=== PATIENT | female | born 1960 | race Hispanic/Latino ===

== ENCOUNTER 2018-04-28 10:03 | Outpatient (CLI) | payer BC | END 2018-04-28 10:04 | disposition home or self-care (01) | LOC: BICMAMMO 10:03 | PROVIDERS: ATTEND Obstetrics & Gynecology | DX: Z12.31 Encounter for screening mammogram for malignant neoplasm of breast (principal) | CPT/HCPCS: 77063; 77067 ==

== ENCOUNTER 2020-05-05 07:46 | Outpatient (CLI) | payer BC, OTHER ==
[2020-05-05 11:33] LABS: #Basophils 0.1 thou/uL (0.0-0.2); #Eosinphils 0.1 thou/uL (0.0-0.7); #Monocytes 0.5 thou/uL (0.11-0.59); #Neutrophils 7.7 thou/uL (1.40-6.50); %Basophils 0.5 % (0.0-1.0); %Eosinophils 1.4 % (0.0-10.0); %Lymphocytes 19.5 % (21.0-51.0); %Monocytes 5.1 % (0.0-10.0); %Neutrophils 73.6 % (42.0-75.0); Hemoglobin 13.6 g/dL (12.0-16.0); Mean Corpuscular HGB CONC 32.7 g/dL (32.0-36.0); Mean Corpuscular Hemoglobin 26.2 pg (27.0-31.0); Mean Corpuscular Volume 80.3 fL (78.0-98.0); Mean Platelet Volume 9.1 fL (7.4-10.4); Platelet Count 257 thou/uL (130-400); RBC Distribution Width 13.4 % (11.5-14.5); Red Blood Cell (RBC) Count 5.19 mill/uL (4.20-5.40); White Blood Cell (WBC) Count 10.5 thou/uL (4.8-10.8)
[2020-05-05 11:52] LABS: Bilirubin Negative (Negative); Blood, Urine Negative (Negative); Clarity Clear (Clear); Glucose, Urine (Dipstick) Normal (Negative); Ketone, Urine Negative (Negative); Leukocyte Negative Leu/uL (Negative); Nitrite Negative (Negative); Protein, Urine (Dipstick) Negative (Neg-Trace); RBC/HPF 0-3 HPF (0-3); Specific Gravity, Urine 1.021 (1.002-1.036); Squamous Epithelial 0-3 HPF (0-3); Urobilinogen Normal mg/dL (Less than 2); WBC/HPF 0-3 HPF (0-3)
[2020-05-05 11:59] LABS: Anion Gap 16 mmol/L (10-20); BUN (Urea Nitrogen) 13 mg/dL (9.8-20.1); Bacteria/HPF 1+ HPF (None Seen); Calc. Creatinine Clearance 0 mL/min (70-130); Calcium 9.1 mg/dL (7.8-10.44); Carbon Dioxide 19 mmol/L (23-31); Chloride 106 mmol/L (98-107); Estimated GFR-MDRD 68; Glucose 153 mg/dL (80-115); Potassium 4.1 mmol/L (3.5-5.1); Sodium 137 mmol/L (136-145)
[2020-05-05 12:42] LABS: INR-International Normal Ratio 0.9; Prothrombin Time 12.3 sec (12.0-14.7)
[2020-05-05 17:07] LABS: SARS-CoV-2 MS2 Positive; SARS-CoV-2 N Gene Negative; SARS-CoV-2 S Gene Negative; SARS-CoV-2 by NAA Not Detected (NotDetected); SARS-CoV-2 orf1ab Negative
--- NOTE | 2020-05-08 12:02 | EKG ---
Test Reason : PREOP Blood Pressure : / mmHG Vent. Rate : 070 BPM Atrial Rate : 070 BPM P-R Int : 194 ms QRS Dur : 092 ms QT Int : 402 ms P-R-T Axes : 070 097 068 degrees QTc Int : 434 ms Normal sinus rhythm Rightward axis Borderline ECG Confirmed by SHIVA HASKINS (2) on 05/08/2020 12:01:36 PM Referred By: Augustus RUIZ Confirmed By:SHIVA HASKINS
== END 2020-05-05 07:47 | disposition home or self-care (01) ==
LOC: LABBT 07:46
PROVIDERS: ATTEND Orthopaedic Surgery
DX: Z01.818 Encounter for other preprocedural examination (principal); M17.12 Unilateral primary osteoarthritis, left knee; Z20.828 Contact with and (suspected) exposure to other viral communicable diseases
CPT/HCPCS: 80048; 81001; 85025; 85610; 87635; 93005; 93010; U0003

== ENCOUNTER 2020-05-05 09:30 | Inpatient (IN) | payer BC ==
[2020-05-10] MEDS ORDERED: Fentanyl 100 MCG/2 ML VIAL ONE ×2 (07:50→09:00)
[2020-05-10] MEDS ORDERED: Midazolam HCl 2 mg/2 ml Vial ONE (07:50)
[2020-05-10] MEDS ORDERED: Vancomycin 1 GM/200 ML BAG ONE (07:54)
[2020-05-10] MEDS ORDERED: Tranexamic Acid 1,000 MG/10 ML VIAL ONE (07:54)
[2020-05-10] MEDS ORDERED: Sodium Chloride 0.9% 100 ML ONE (07:54)
[2020-05-10] MEDS ORDERED: HYDROcodone/Acetaminophen 10/325 mg Tablet PO PRN ×2 (08:45)
[2020-05-10] MEDS ORDERED: Fentanyl 100 MCG/2 ML VIAL SLOW IVP PRN (08:45)
[2020-05-10] MEDS ORDERED: Ropivacaine HCl/PF 250 ML in Premix Bag 1 BAG NERVE BLCK SCH (08:45)
[2020-05-10] MEDS ORDERED: traMADol HCl 50 MG TAB PO PRN ×2 (08:45)
[2020-05-10] MEDS ORDERED: Ondansetron PF 4 MG/2 ML Vial IVP PRN ×2 (08:45→08:56)
[2020-05-10] MEDS ORDERED: Zolpidem Tartrate 5 MG TAB PO PRN ×2 (08:45→08:56)
[2020-05-10] MEDS ORDERED: Promethazine HCl 25 MG/ML VIAL IM PRN ×3 (08:45→10:44)
[2020-05-10] MEDS ORDERED: diphenhydrAMINE 25 MG CAP PO PRN (08:56)
[2020-05-10] MEDS ORDERED: Acetaminophen 325 MG TAB PO PRN (08:56)
[2020-05-10] MEDS ORDERED: Ondansetron HCl/PF 4 MG/2 ML Vial IVP PRN (10:44)
[2020-05-10] MEDS ORDERED: Promethazine HCl 25 MG/ML VIAL SLOW IVP PRN (10:44)
--- NOTE | 2020-05-10 10:55 | RAD ---
EXAM: 2 views of the left knee HISTORY: Knee arthroplasty COMPARISON: None FINDINGS: No knee effusion is seen. The patient is status post knee arthroplasty without perihardware lucency or fracture. Air in the soft tissues is from recent surgery. IMPRESSION: Status post knee arthroplasty without evidence of complication.
[2020-05-10 11:51] VITALS: BMI 35.4
[2020-05-10] MEDS ORDERED: Ropivacaine 0.2% HCl/PF (40 MG/20 ML VIAL) ONE (12:16)
[2020-05-10] MEDS ORDERED: PROPOFOL 200 MG/20 ML VIAL ONE (12:16)
[2020-05-10] MEDS ORDERED: Dexamethasone 20 MG/5 ML VIAL ONE (12:16)
[2020-05-10] MEDS ORDERED: Lidocaine 1% PF 5 ML VIAL ONE (12:16)
[2020-05-10] MEDS ORDERED: PHENYLEPHRINE-NS 100 MCG/ML 10 ML SYRINGE ONE (12:16)
[2020-05-10] MEDS ORDERED: Bupivacaine HCl 0.5%/Epinephrine 1:200,000/PF 30 ml Vial ONE (12:16)
[2020-05-10] MEDS: Ketorolac Tromethamine 30 MG/ML VIAL IVP SCH ×3 (15:00→23:38)
[2020-05-10] MEDS: Sodium Chloride 0.9% 1,000 ML IV SCH ×2 (15:00→22:30)
[2020-05-10] MEDS: Aspirin 81 mg Enteric Coated Tablet PO SCH ×2 (15:00→20:43)
[2020-05-10] MEDS: CEFAZOLIN 2 GM in Premix Bag 1 BAG IVPB SCH ×2 (17:03→23:39)
[2020-05-11] MEDS: Sodium Chloride 0.9% 1,000 ML IV SCH ×2 (04:04→14:22)
[2020-05-11] MEDS: Ketorolac Tromethamine 30 MG/ML VIAL IVP SCH ×4 (05:16→23:45)
[2020-05-11 05:40] LABS: Hemoglobin 12.2 g/dL (12.0-16.0); Mean Corpuscular HGB CONC 33.5 g/dL (32.0-36.0); Mean Corpuscular Hemoglobin 26.8 pg (27.0-31.0); Mean Corpuscular Volume 80.1 fL (78.0-98.0); Mean Platelet Volume 8.8 fL (7.4-10.4); Platelet Count 244 thou/uL (130-400); Red Blood Cell (RBC) Count 4.56 mill/uL (4.20-5.40)
[2020-05-11] MEDS: Senokot S 8.6-50 MG TAB PO SCH ×2 (08:57→21:50)
[2020-05-11] MEDS: Ferrous Gluconate 324 MG TAB PO SCH ×2 (08:57→21:50)
[2020-05-11] MEDS: Multivitamin W/ Minerals 1 TAB PO SCH (08:57)
[2020-05-11] MEDS: Aspirin 81 mg Enteric Coated Tablet PO SCH ×2 (08:57→21:50)
[2020-05-11] MEDS ORDERED: FLU VACC QS2020-21(6MOS UP)/PF 60 MCG/0.5 ML SYRINGE IM ONE (09:00)
--- NOTE | 2020-05-11 12:47 | OP ---
DATE OF PROCEDURE: 05/10/2020 PROCEDURE PERFORMED: Left total knee arthroplasty using [employer] Triathlon 2 tibia, 2 femur, 9 mm CS X3 polyethylene and S27 patella. 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 The research lab assistant/co-surgeon also provided bleeding control, tissue closure, and suturing in conjunction with the primary surgeon. BLOOD LOSS: Minimal. SPECIMEN: None. DRAINS: None. COMPLICATION: None. PROCEDURE IN DETAIL: After informed consent was obtained in the preoperative holding area, the patient was taken to the operative suite where general anesthesia was induced. Once adequate level of general anesthesia was obtained, the patient was positioned and a well-padded tourniquet was placed around the left proximal thigh. The left lower extremity was then prepped and draped in the usual sterile fashion. Prior to exsanguination, a time-out was called and all members of the surgical team agreed upon site, surgeon, and patient. The extremity was then exsanguinated and the tourniquet was raised. A midline longitudinal incision was then made directly over the patella extending 2 fingerbreadths above the superior pole of the patella and 2 fingerbreadths inferior to the inferior patellar pole of the patella. Deeper subcutaneous layers were dissected sharply and local bleeding was controlled with Bovie electrocautery. A quad tendon longitudinal split was then made sharply and a median parapatellar arthrotomy was carried out both sharp and with Bovie electrocautery, carried down to 1 fingerbreadth medial to the tibial tubercle. The knee was then placed into flexion and the patella was everted nicely, and a copious fat pad ectomy was performed allowing for greater exposure of the tibia. The computer-assisted distal femoral fiducial was then placed and pinned firmly, and the distal femoral cutting guide was pinned firmly into place. The oscillating saw was then used to remove the appropriate amount of bone. The 4-in-1 cutting block was then placed on the distal femur and the oscillating saw was used to remove the appropriate amount of bone off the anterior, posterior, and chamfer cuts. After completion of bone cuts, the anterior cruciate ligament was resected sharply and the posterior cruciate ligament retractor was placed and the tibia was subluxed for better exposure. Partial meniscectomies were carried out, and the tibial computer-assisted fiducial was pinned, and the cutting guide was placed. Oscillating saw was then used to remove the bone, with Hohmann retractors used to take care and protect the collateral ligaments. After the tibial resection was performed, a laminar cocoa press operator was placed in between the freshened bone cuts. The knee placed at 90 degrees and further bilateral meniscectomies were carried out, and the curved osteotome and curettage were used to remove any excess bone spurs in the posterior compartment. The trial femoral component, tibial baseplate were placed with the appropriate polyethylene trial insert with an appropriate polyethylene spacer and patellar button. The knee was taken through full range of motion with flexion and extension from 0 to 90 degrees and patellar broach squarely in the trochlea without any squinting or subluxation noted. The knee was also stable to varus and valgus stressing at 0, 15, 45, and 90 degrees of flexion. The drawer was negative. All trial components were then removed and the keel punch was used to provide the appropriate defect in the tibia with a mallet. The freshened bone cuts were copiously irrigated with pulsatile lavage of about 1.5 L to remove all excess debris. The freshened bone cuts were then dried with suction and lap sponge. The knee was placed in flexion and retractors were placed to provide access to all bone cuts. Tobramycin-impregnated methyl methacrylate cement was then placed on the freshened bone cuts and implants which were malleted firmly into place. Curettage and [place] elevators were used to remove any excess bone cement. The knee was placed into full extension and the patellar button was placed under compression, and the cement was allowed to cure. Once completed, the components were again taken through full range of motion and copious irrigation of the knee was carried out with another liter of normal saline. All components were inspected fully with full range of motion and varus and valgus stressing. There was no laxity noted and full extension was observed clinically. Primary closure was accomplished with #2 interrupted Vicryl stitch of the arthrotomy defect. This was oversewn with a #2 running Quill barbed stitch. The gravitational platelet system was then injected into the arthrotomy prior to closure. The subcutaneous layer was then closed with a running 0 barbed Monocryl stitch and skin closure accomplished with a running subcuticular 3-0 Monocryl barbed Quill stitch and augmented with cement on the skin. Tourniquet was lowered. Good spontaneous return of distal pulses was noted clinically and a sterile dressing was applied to the incision. The procedure was terminated without any complications. The patient was awakened in the operative suite and the was removed, and the patient was taken to the recovery room in stable condition. Job ID: [id number]
[2020-05-12] MEDS: Sodium Chloride 0.9% 1,000 ML IV SCH ×2 (02:00→10:27)
[2020-05-12 05:14] LABS: Hemoglobin 11.8 g/dL (12.0-16.0); Mean Corpuscular HGB CONC 33.4 g/dL (32.0-36.0); Mean Corpuscular Hemoglobin 26.8 pg (27.0-31.0); Mean Corpuscular Volume 80.2 fL (78.0-98.0); Mean Platelet Volume 8.6 fL (7.4-10.4); Platelet Count 236 thou/uL (130-400); Red Blood Cell (RBC) Count 4.41 mill/uL (4.20-5.40); White Blood Cell (WBC) Count 14.3 thou/uL (4.8-10.8)
[2020-05-12] MEDS: Ketorolac Tromethamine 30 MG/ML VIAL IVP SCH (05:45)
[2020-05-12] MEDS: Ferrous Gluconate 324 MG TAB PO SCH (08:26)
[2020-05-12] MEDS: Aspirin 81 mg Enteric Coated Tablet PO SCH (08:26)
[2020-05-12] MEDS: Multivitamin W/ Minerals 1 TAB PO SCH (08:26)
[2020-05-12] MEDS: Senokot S 8.6-50 MG TAB PO SCH (08:26)
[2020-05-12 16:46] VITALS: BP 103/67; TEMP 98.2
== END 2020-05-12 16:55 | disposition home or self-care (01) | DRG 470 ==
LOC: SURG A 05-10 06:24 → SJJU 05-10 11:46
PROVIDERS: ADMIT Orthopaedic Surgery; ATTEND Orthopaedic Surgery
PROC: 0SRD0J9 Replacement of Left Knee Joint with Synthetic Substitute, Cemented, Open Approach (ICD-10-PCS; principal; 2020-05-10)
PROC: 3E02340 Introduction of Influenza Vaccine into Muscle, Percutaneous Approach (ICD-10-PCS; 2020-05-11)
DX: M17.12 Unilateral primary osteoarthritis, left knee (principal); Z23 Encounter for immunization
CPT/HCPCS: 36415; 85027; 90471; 90662; C1713; C1776; G0008; J0690; J1100; J1885; J2250; J2704; J2795; J3010; J3370; J3490

== ENCOUNTER 2021-04-24 14:23 | Outpatient (CLI) | payer BC | END 2021-04-24 14:24 | disposition home or self-care (01) | LOC: BICMAMMO 14:23 | PROVIDERS: ATTEND Obstetrics & Gynecology | DX: Z12.31 Encounter for screening mammogram for malignant neoplasm of breast (principal) | CPT/HCPCS: 77063; 77067 ==

== ENCOUNTER 2022-05-28 08:54 | Outpatient (CLI) | payer BC | END 2022-05-28 08:55 | disposition home or self-care (01) | LOC: BICMAMMO 08:54 | PROVIDERS: ATTEND Obstetrics & Gynecology | DX: Z12.31 Encounter for screening mammogram for malignant neoplasm of breast (principal) | CPT/HCPCS: 77063; 77067 ==

== ENCOUNTER 2023-06-20 11:26 | Outpatient (CLI) | payer BC | END 2023-06-20 11:27 | disposition home or self-care (01) | LOC: BICMAMMO 11:26 | PROVIDERS: ATTEND Obstetrics & Gynecology | DX: Z12.31 Encounter for screening mammogram for malignant neoplasm of breast (principal) | CPT/HCPCS: 77063; 77067 ==

== ENCOUNTER 2024-04-13 10:29 | Outpatient (CLI) | payer BC | END 2024-04-13 10:30 | disposition home or self-care (01) | LOC: BICCT 10:29 | PROVIDERS: ATTEND Orthopaedic Surgery | DX: M17.11 Unilateral primary osteoarthritis, right knee (principal) ==

== ENCOUNTER 2024-04-22 08:58 | Outpatient (CLI) | payer BC ==
[2024-04-22 10:24] LABS: #Basophils 0.05 10x3/uL (0.0-0.2); %Basophils 0.6 % (0.0-1.0); %Eosinophils 1.8 % (0.0-10.0); %Lymphocytes 25.8 % (21.0-51.0); %Monocytes 6.7 % (0.0-10.0); %Neutrophils 64.9 % (42.0-75.0); Hematocrit 44.4 % (36.0-47.0); Hemoglobin 14.1 g/dL (12.0-16.0); Mean Corpuscular HGB CONC 31.8 g/dL (32.0-36.0); Mean Corpuscular Volume 78.7 fL (78.0-98.0); Platelet Count 259 10x3/uL (130-400); RBC Distribution Width 14.5 % (11.5-14.5); Red Blood Cell (RBC) Count 5.64 mill/uL (4.20-5.40)
[2024-04-22 10:37] LABS: Prothrombin Time 12.7 sec (12.0-14.7)
[2024-04-22 10:41] LABS: Anion Gap 12 mmol/L (10-20); BUN (Urea Nitrogen) 19 mg/dL (9.8-20.1); Calc. Creatinine Clearance 0 mL/min (70-130); Calcium 9.8 mg/dL (7.8-10.44); Carbon Dioxide 24 mmol/L (23-31); Chloride 109 mmol/L (98-107); Estimated GFR 75; Glucose 115 mg/dL (80-115); Sodium 141 mmol/L (136-145)
[2024-04-22 11:25] LABS: Bilirubin Negative (Negative); Blood, Urine Negative (Negative); Clarity Clear (Clear); Glucose, Urine (Dipstick) Normal (Negative); Ketone, Urine Negative (Negative); Leukocyte Negative Leu/uL (Negative); Nitrite Negative (Negative); Protein, Urine (Dipstick) Negative (Neg-Trace); Specific Gravity, Urine 1.016 (1.002-1.036); Urobilinogen Normal mg/dL (Less than 2)
== END 2024-04-22 08:59 | disposition home or self-care (01) ==
LOC: LABBT 08:58
PROVIDERS: ATTEND Orthopaedic Surgery
DX: Z01.818 Encounter for other preprocedural examination (principal); M17.11 Unilateral primary osteoarthritis, right knee
CPT/HCPCS: 71046; 80048; 81003; 85025; 85610; 87081; 93005; 93010

== ENCOUNTER 2024-06-22 14:00 | Outpatient (CLI) | payer BC | END 2024-06-22 14:01 | disposition home or self-care (01) | LOC: BICMAMMO 14:00 | PROVIDERS: ATTEND Obstetrics & Gynecology | DX: Z12.31 Encounter for screening mammogram for malignant neoplasm of breast (principal) | CPT/HCPCS: 77063; 77067 ==

== ENCOUNTER 2025-06-30 14:32 | Outpatient (CLI) | payer BC | END 2025-06-30 14:33 | disposition home or self-care (01) | LOC: BICMAMMO 14:32 | PROVIDERS: ATTEND Obstetrics & Gynecology | DX: Z12.31 Encounter for screening mammogram for malignant neoplasm of breast (principal) | CPT/HCPCS: 77063; 77067 ==